=== PATIENT | male | born 1995 | race Two or more races ===

== ENCOUNTER 2023-09-19 02:06 | Inpatient (IN) | payer MEDICAID ==
[~2023-09-19] VITALS: Ht 182.9 cm; Wt 116.1 kg
[2023-09-19 04:08] LABS: EOSINOPHILS % (AUTO) 3.2 % (1.0-6.0); HEMATOCRIT 45.7 % (41-53); HEMOGLOBIN 15.6 g/dL (13.5-17.5); LYMPHOCYTES # (AUTO) 1.7 K/uL (1.0-4.8); LYMPHOCYTES % (AUTO) 28.8 % (22.0-44.0); MEAN CORPUSCULAR HEMOGLOBIN 30.5 pg (26.0-34.0); MEAN CORPUSCULAR HGB CONC 34.2 G/dL (31.0-37.0); MEAN CORPUSCULAR VOLUME 89 fL (80-100); MONOCYTES # (AUTO) 0.3 K/uL (0.1-1.0); MONOCYTES % (AUTO) 5.6 % (2.0-9.0); NEUTROPHILS # (AUTO) 3.7 K/uL (1.8-7.7); NEUTROPHILS % (AUTO) 61.4 % (40.0-70.0); PLATELET COUNT (AUTO) 268 K/uL (150-450); RED BLOOD CELL COUNT(AUTO) 5.13 MIL/uL (4.50-5.90); RED CELL DISTRIBUTION WIDTH 13.5 % (11.5-14.5); WHITE BLOOD COUNT (AUTO) 5.9 K/uL (4.5-11.0)
[2023-09-19 04:11] LABS: ANION GAP 8 mmol/L (8-16); CARBON DIOXIDE 26 mmol/L (22-29); CHLORIDE 107 mmol/L (98-107); CREATININE 0.97 mg/dL (0.60-1.30); GLOMERULAR FILTR. RATE CALC > 60 mL/min (>60); GLUCOSE,RANDOM 112 mg/dL (70-110); POTASSIUM 3.8 mmol/L (3.5-5.1); SODIUM SERUM 141 mmol/L (136-145); UREA NITROGEN, BLOOD 9 mg/dL (7-18)
[2023-09-19 04:13] LABS: ALANINE AMINOTRANSFERASE 59 U/L (12-78); ALKALINE PHOSPHATASE 86 U/L (46-116); ASPARTATE AMINOTRANSFERASE 27 U/L (15-37); BILIRUBIN,TOTAL 1.2 mg/dL (0.1-1.0); TOTAL PROTEIN, SERUM 7.6 g/dL (6.4-8.2)
[2023-09-19 04:15] LABS: ALCOHOL, BLOOD (SERUM) 66 mg/dL (0-10)
[2023-09-19] MEDS ORDERED: ACETAMINOPHEN 325 MG TABLET PO PRN ×2 (05:15→11:30)
[2023-09-19 05:32] LABS: COVID AG,FIA SOURCE NASAL SWAB
[2023-09-19 06:24] LABS: SARS-COV2 (COVID) ANTIGEN,FIA Positive (Negative)
[2023-09-19] MEDS ORDERED: LORazepam 2 MG TABLET PO ONE (08:15)
[2023-09-19] MEDS ORDERED: ACETAMINOPHEN 500 MG TABLET PO ONE (08:15)
[2023-09-19] MEDS ORDERED: HALOPERIDOL 5 MG TABLET PO ONE (08:15)
[2023-09-19] MEDS ORDERED: DiphenhydrAMINE HCL 25 MG CAPSULE PO ONE (08:15)
[2023-09-19] MEDS ORDERED: LOPERAMIDE HCL 2 MG CAPSULE PO PRN (11:30)
[2023-09-19] MEDS ORDERED: PETROLATUM,WHITE 28 GM JELLY TP PRN (11:30)
[2023-09-19] MEDS ORDERED: CloNIDine HCL 0.1 MG TABLET PO PRN (11:30)
[2023-09-19] MEDS ORDERED: DOCUSATE SODIUM 100 MG CAPSULE PO PRN (11:30)
[2023-09-19] MEDS ORDERED: MAGNESIUM HYDROXIDE SUSPENSION 30 ML UDCUP PO PRN (11:30)
[2023-09-19] MEDS ORDERED: MAG HYDROX/ALUMINUM HYD/SIMETH ES 30 ML SUSPENSION UDCUP PO PRN (11:30)
[2023-09-19] MEDS ORDERED: ONDANSETRON HCL 4 MG TABLET PO PRN (11:30)
[2023-09-19] MEDS ORDERED: NICOTINE 14 MG/24 HOUR PATCH TD PRN (11:30)
[2023-09-19] MEDS ORDERED: IBUPROFEN 400 MG TABLET PO PRN (11:30)
[2023-09-19] MEDS ORDERED: GuaiFENesin/D-METHORPHAN [SUGAR-FREE] 200-20MG/10 ML SYRUP UDCUP PO PRN (11:30)
[2023-09-19] MEDS ORDERED: ALBUTEROL SULFATE HFA 90 MCG/PUFF 8 GM INHALER IH PRN (11:30)
[2023-09-19 20:22] VITALS: BP 112/71; PULSE 51; RESP 18; TEMP 98
[2023-09-20] MEDS ORDERED: INFLUENZA VIRUS VACCINE QVS 2023-24 (6MO+)/PF 60 MCG/0.5 ML SYRINGE IM. ONE (02:30)
[2023-09-20 04:41] VITALS: BP 131/80; PULSE 66; RESP 18; TEMP 97.9
[2023-09-20] MEDS ORDERED: HydrOXYzine PAMOATE 50 MG CAPSULE PO ONE (05:15)
[2023-09-20 08:00] VITALS: BP 116/77; PULSE 61; RESP 18; TEMP 98.2
[2023-09-20 08:02] LABS: HEMOGLOBIN A1C 5.4 % (3.8-5.6)
[2023-09-20 09:03] LABS: CHOL/HDL RATIO 2.2 (4.2-7.3); THYROID STIMULATING HORMONE 2.24 uIU/mL (0.36-3.74)
[2023-09-20 09:35] LABS: APPEARANCE,URINE CLEAR (CLEAR); BILIRUBIN,URINE NEGATIVE (NEGATIVE); COLOR,URINE YELLOW (YELLOW); GLUCOSE, URINE (UA) NEGATIVE (NEGATIVE); KETONES,URINE NEGATIVE (NEGATIVE); LEUKOCYTE ESTERASE ,URINE TRACE (NEGATIVE); NITRATE,URINE NEGATIVE (NEGATIVE); OCCULT BLOOD,URINE NEGATIVE (NEGATIVE); PH,URINE 5.5 (5.0-8.0); PH,URINE DRUG SCREEN 5.5 (5.0-8.0); PROTEIN,URINE TRACE mg/dL (NEGATIVE); UROBILINOGEN,URINE <=1.0 mg/dL (<=1.0)
[2023-09-20 09:42] LABS: ALCOHOL, URINE DRUG SCREEN NEGATIVE (NEGATIVE); AMPHET/METH SCREEN,URINE NEGATIVE (NEGATIVE); BARBITURATE SCREEN, URINE NEGATIVE (NEGATIVE); BENZODIAZEPINES SCREEN,URINE NEGATIVE (NEGATIVE); CANNABINOID SCREEN,URINE NEGATIVE (NEGATIVE); COCAINE SCREEN,URINE NEGATIVE (NEGATIVE); METHADONE SCREEN, URINE NEGATIVE (NEGATIVE); OPIATE SCREEN,URINE NEGATIVE (NEGATIVE); PHENCYCLIDINE SCREEN,URINE NEGATIVE (NEGATIVE)
[2023-09-20 10:46] LABS: RBC,URINE None Seen /HPF (0-2)
[2023-09-20 10:47] LABS: BACTERIA,URINE None Seen /HPF (None Seen); SQUAMOUS EPITHELIAL CELL,UR Few /LPF (None Seen)
[2023-09-20] MEDS ORDERED: LORazepam 1 MG TABLET PO ONE (11:15)
[2023-09-20 12:00] VITALS: BP 130/94; PULSE 78; RESP 18; TEMP 97.8
[2023-09-20] MEDS: SERTRALINE HCL 50 MG TABLET PO SCH (14:45)
[2023-09-20 16:00] VITALS: BP 122/81; PULSE 67; RESP 18; TEMP 97.9
[2023-09-20 19:25] VITALS: BP 118/82; PULSE 62; RESP 18; TEMP 98.2
[2023-09-21 04:28] VITALS: BP 109/65; PULSE 62; RESP 18; TEMP 98.2
[2023-09-21 07:51] VITALS: BP 110/66; PULSE 64; RESP 18; TEMP 98.2
[2023-09-21] MEDS: SERTRALINE HCL 50 MG TABLET PO SCH (09:17)
[2023-09-21] MEDS ORDERED: HydrOXYzine HCL 50 MG TABLET PO PRN (14:30)
[2023-09-21 15:10] VITALS: BP 126/80; PULSE 66; RESP 18; TEMP 97.9
[2023-09-21 19:19] VITALS: BP 118/74; PULSE 60; RESP 18; TEMP 98.2
[2023-09-22 04:37] VITALS: BP 121/78; PULSE 64; RESP 18; TEMP 97.7
[2023-09-22] MEDS: SERTRALINE HCL 50 MG TABLET PO SCH (08:43)
[2023-09-22 10:15] VITALS: BP 140/73; PULSE 79; RESP 19; TEMP 98.7
[2023-09-22] MEDS ORDERED: CIPROFLOXACIN HCL 250 MG TABLET PO ONE (11:15)
[2023-09-22] MEDS ORDERED: CIPR250T6 PO (11:15)
== END 2023-09-22 13:56 | disposition home or self-care (01) | DRG 754 ==
LOC: EMS 02:08 → AHU 05:30 → 6N 18:53
PROVIDERS: ADMIT Internal Medicine; ATTEND Internal Medicine
DX: F32.9 Major depressive disorder, single episode, unspecified (principal); U07.1 COVID-19; R45.851 Suicidal ideations; R45.850 Homicidal ideations; E66.3 Overweight; N39.0 Urinary tract infection, site not specified; F41.9 Anxiety disorder, unspecified; R73.9 Hyperglycemia, unspecified; Z81.8 Family history of other mental and behavioral disorders; Z79.899 Other long term (current) drug therapy
CPT/HCPCS: 80053; 80061; 80307; 81001; 83036; 84443; 85025; 87086; 87186; 99285; G0480